=== PATIENT | male | born 1995 | race Caucasian/White ===

== ENCOUNTER 2016-09-04 23:47 | Emergency (ER) | payer OTHER ==
--- NOTE | 2016-09-05 01:54 | ED ORDER SUMMARY ---
..... Patient: KELLY GUZMAN OrderSheet [facility] VisitID: [id number] [address] [place] [address] 21y, M Registration Date/Time: 09/04/2016 ORDER SHEET Weight: 69.3 kg (stated) Allergies: No Known Drug Allergy GENERAL ORDERS: US Scrotum/Testicular Urgent (00:08 09/05/2016 Elkin GIRALDO) (Ack 0:12 AMcQuoid ER Tech1) (1:05 Veronica) UA-Culture if indicated Urgent (00:09 09/05/2016 Elkin GIRALDO) (Ack 0:12 AMcQuoid ER Tech1) (1:26 Reyna R.NAbdulaziz) MEDICATION ORDERS: IV FLUIDS: ORDER SHEET NOTES: [Electronically signed by Bree Cruz R.N. (02:02 09/05/2016)] [Electronically signed by Tate Wyatt MD (10:05 09/07/2016)] [Electronically locked/signed by Bree Cruz R.N. (02:02 09/05/2016)]
--- NOTE | 2016-09-05 01:54 | ED CLINICAL REPORT ---
Clinical Report - Physicians/Mid Levels [facility] [address] [place] [address] 09/04/2016 23:48 Patient: KELLY GUZMAN Time Seen: 00:06. Arrived- By private vehicle. Historian- patient and significant other. CPT: ER phys charges level 4 (#[id number]). HISTORY OF PRESENT ILLNESS Chief Complaint: RIGHT TESTICULAR PAIN. Is still present. The problem is described as moderate. No penile discharge, discomfort with urination, urinary frequency or genital lesion. He has had moderate testicular pain, involving the right testicle with swelling. Sexual history is noncontributory. Similar symptoms previously: None. Recent medical care: Not recently seen/assessed. REVIEW OF SYSTEMS No fever, flank pain, hematuria, abdominal pain or vomiting. No diarrhea, black stools, sore throat, chest pain or difficulty breathing. No cough, joint pain, skin rash or back pain. All systems otherwise negative, except as recorded above. PAST HISTORY See nurses notes. ( Hydrocele). Medications: Whey Protein Oral. Multivitamins Oral. Allergies: No Known Drug Allergy. SOCIAL HISTORY Never smoker. No alcohol use or drug use. ADDITIONAL NOTES The nursing notes have been reviewed. PHYSICAL EXAM Vital Signs: 09/04/2016 23:53 BP: 134/73. HR: 70. RR: 16. O2 saturation: 99%. Temp: 97.9 F. Carrillo-Perkins pain scale: 4/10. Appearance: Alert. Patient in mild distress. ENT: Normal external inspection. Pharynx normal. CVS: Heart sounds normal. Respiratory: No respiratory distress. Breath sounds normal. Abdomen: Soft and nontender. Bowel sounds normal. Back: Normal external inspection. No CVA tenderness. : Moderate tenderness of the right testicle and epididymis. Skin: Skin warm. Normal skin color. No rash. Extremities: Extremities exhibit normal ROM. Neuro: Oriented X 3. No motor deficit. No sensory deficit. LABS, X-RAYS, AND EKG Testicular Scan: There is moderately increased flow to the right testicle. Findings are consistent with epididymitis. . Flow not decreased. Laboratory Tests: UA-Culture if indicated: (ARISTIDES: 09/05/2016 01:24) ( MsgRcvd 09/05/2016 01:43) Final results Test Result Flag Units (Reference) URINE COLOR YELLOW URINE APPEARANCE SLIGHTLY HAZY URINE GLUCOSE NEGATIVE (NEGATIVE) URINE BILIRUBIN NEGATIVE (NEGATIVE) URINE KETONE NEGATIVE (NEGATIVE) URINE SPECIFIC GRAVITY 1.015 (1.010-1.030) URINE PH 8.0 (5.0-8.0) URINE PROTEIN 1+ (NEGATIVE) URINE UROBILINOGEN 0.2 EU/dL (0.2-1.0) URINE NITRITE NEGATIVE (NEGATIVE) URINE BLOOD NEGATIVE (NEGATIVE) URINE LEUK ESTERASE NEGATIVE (NEGATIVE) URINE RBC RARE rbc/hpf (0-1) URINE WBC 0-1 wbc/hpf (0-1) URINE EPITHELIAL CELLS NONE SEEN EPI/hpf (0-5) URINE BACTERIA NONE SEEN (NONE SEEN) URINE COMMENT CULT NOT INDICATED 3+ AMORPHOUSURINE CULTURES ARE SET-UP BASED ON THE FOLLOWING CRITERIA:POSITIVE NITRITEPOSITIVE LEUKOCYTE ESTERASEGREATER THAN 10 WHITE BLOOD CELLSMODERATE (2+) OR GREATER BACTERIA . PROGRESS AND PROCEDURES Patient/family counseled. Disposition: Discharged. Condition: stable. CLINICAL IMPRESSION Right epididymitis INSTRUCTIONS No sexual contact until symptoms resolve. Warnings: Further evaluation is necessary. GENERAL WARNINGS: Return or contact your physician immediately if your condition worsens or changes unexpectedly, if not improving as expected, or if other problems arise. Your Current Medications: CONTINUE TAKING THE FOLLOWING MEDICATIONS: Multivitamins Oral. Whey Protein Oral. Prescription Medications: Hydrocodone/APAP 5mg/325mg: take 1 to 2 orally every 6 hours as needed for pain. Dispense fifteen (15). No refills. Doxycycline 100 mg: Take 1 capsule orally every 12 hours for 10 days. No refill. Follow-up: Return to the emergency department if not well. Follow up with your doctor in one week. Call for an appointment. Understanding of the discharge instructions verbalized by patient. Discharge instructions reviewed with and understanding was verbalized by shale processing technician. (Electronically signed by Tate Wyatt MD 09/07/2016 10:05)
--- NOTE | 2016-09-05 01:54 | ED CLINICAL REPORT ---
Clinical Report - Physicians/Mid Levels [facility] [address] [place] [address] 09/04/2016 23:48 Patient: KELLY GUZMAN Time Seen: 00:06. Arrived- By private vehicle. Historian- patient and significant other. CPT: ER phys charges level 4 (#[id number]). HISTORY OF PRESENT ILLNESS Chief Complaint: RIGHT TESTICULAR PAIN. Is still present. The problem is described as moderate. No penile discharge, discomfort with urination, urinary frequency or genital lesion. He has had moderate testicular pain, involving the right testicle with swelling. Sexual history is noncontributory. Similar symptoms previously: None. Recent medical care: Not recently seen/assessed. REVIEW OF SYSTEMS No fever, flank pain, hematuria, abdominal pain or vomiting. No diarrhea, black stools, sore throat, chest pain or difficulty breathing. No cough, joint pain, skin rash or back pain. All systems otherwise negative, except as recorded above. PAST HISTORY See nurses notes. ( Hydrocele). Medications: Whey Protein Oral. Multivitamins Oral. Allergies: No Known Drug Allergy. SOCIAL HISTORY Never smoker. No alcohol use or drug use. ADDITIONAL NOTES The nursing notes have been reviewed. PHYSICAL EXAM Vital Signs: 09/04/2016 23:53 BP: 134/73. HR: 70. RR: 16. O2 saturation: 99%. Temp: 97.9 F. Carrillo-Perkins pain scale: 4/10. Appearance: Alert. Patient in mild distress. ENT: Normal external inspection. Pharynx normal. CVS: Heart sounds normal. Respiratory: No respiratory distress. Breath sounds normal. Abdomen: Soft and nontender. Bowel sounds normal. Back: Normal external inspection. No CVA tenderness. : Moderate tenderness of the right testicle and epididymis. Skin: Skin warm. Normal skin color. No rash. Extremities: Extremities exhibit normal ROM. Neuro: Oriented X 3. No motor deficit. No sensory deficit. LABS, X-RAYS, AND EKG Testicular Scan: There is moderately increased flow to the right testicle. Findings are consistent with epididymitis. . Flow not decreased. Laboratory Tests: UA-Culture if indicated: (ARISTIDES: 09/05/2016 01:24) ( MsgRcvd 09/05/2016 01:43) Final results Test Result Flag Units (Reference) URINE COLOR YELLOW URINE APPEARANCE SLIGHTLY HAZY URINE GLUCOSE NEGATIVE (NEGATIVE) URINE BILIRUBIN NEGATIVE (NEGATIVE) URINE KETONE NEGATIVE (NEGATIVE) URINE SPECIFIC GRAVITY 1.015 (1.010-1.030) URINE PH 8.0 (5.0-8.0) URINE PROTEIN 1+ (NEGATIVE) URINE UROBILINOGEN 0.2 EU/dL (0.2-1.0) URINE NITRITE NEGATIVE (NEGATIVE) URINE BLOOD NEGATIVE (NEGATIVE) URINE LEUK ESTERASE NEGATIVE (NEGATIVE) URINE RBC RARE rbc/hpf (0-1) URINE WBC 0-1 wbc/hpf (0-1) URINE EPITHELIAL CELLS NONE SEEN EPI/hpf (0-5) URINE BACTERIA NONE SEEN (NONE SEEN) URINE COMMENT CULT NOT INDICATED 3+ AMORPHOUSURINE CULTURES ARE SET-UP BASED ON THE FOLLOWING CRITERIA:POSITIVE NITRITEPOSITIVE LEUKOCYTE ESTERASEGREATER THAN 10 WHITE BLOOD CELLSMODERATE (2+) OR GREATER BACTERIA . PROGRESS AND PROCEDURES Patient/family counseled. Disposition: Discharged. Condition: stable. CLINICAL IMPRESSION Right epididymitis INSTRUCTIONS No sexual contact until symptoms resolve. Warnings: Further evaluation is necessary. GENERAL WARNINGS: Return or contact your physician immediately if your condition worsens or changes unexpectedly, if not improving as expected, or if other problems arise. Your Current Medications: CONTINUE TAKING THE FOLLOWING MEDICATIONS: Multivitamins Oral. Whey Protein Oral. Prescription Medications: Hydrocodone/APAP 5mg/325mg: take 1 to 2 orally every 6 hours as needed for pain. Dispense fifteen (15). No refills. Doxycycline 100 mg: Take 1 capsule orally every 12 hours for 10 days. No refill. Follow-up: Return to the emergency department if not well. Follow up with your doctor in one week. Call for an appointment. Understanding of the discharge instructions verbalized by patient. Discharge instructions reviewed with and understanding was verbalized by brand marketing intern. (Electronically signed by Tate Wyatt MD 09/07/2016 10:05)
--- NOTE | 2016-09-05 01:54 | ED NURSING NOTES ---
Clinical Report - Nurses [facility] [address] [place] [address] 09/04/2016 23:48 Patient: KELLY GUZMAN TRIAGE Triage time 23:53. Acuity: LEVEL 3. Chief Complaint: TESTICULAR PAIN. Alert. No acute distress. --23:58 Bree Cruz R.N. 23:53 09/04/16. BP: 134/73. HR: 70. RR: 16. O2 saturation: 99% on room air. Temp: 97.9 F (oral). Carrillo-Perkins pain scale: 4/10. --23:58 Bree Cruz R.N. Weight: 69.3 kg stated. Height/Length: 66 inches Per Patient. BMI: 24.7. --23:55 Bree Cruz R.N. Medications Multivitamins Oral. --23:55 Bree Cruz R.N. Whey Protein Oral. --23:55 Bree Cruz R.N. Allergies No Known Drug Allergy. --23:55 Bree Cruz R.N. History Arrived by private vehicle. Historian: patient. Accompanied by friend. Primary physician (None). ( pt urinated and noticed pain & swelling.). This started today. Onset. 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 He has had testicular pain. Treatment MEDICAL STAFFING COORDINATOR: None. PAST MEDICAL HX: Immunizations: up-to-date. SOCIAL HX: Never smoker. No alcohol use or drug use. NUTRITIONAL RISK ASSESSMENT: The nutritional risk assessment revealed no deficiencies. FUNCTIONAL ASSESSMENT: Functional assessment: no impairments noted. --23:58 Bree Cruz R.N. PROBLEMS: Epididymitis. --23:56 Bree Cruz R.N. ADDITIONAL SURGERIES: Hydrocele. --23:56 Bree Cruz R.N. Interventions ID band on patient. To treatment room. --23:58 Bree Cruz R.N. PHYSICAL ASSESSMENT Ambulatory to room. Patient gowned. GENERAL / NEURO / PSYCH: Oriented X 4. Appears in pain. HEENT: Mucous membranes are pink. RESPIRATORY: Respirations not labored. CVS: Capillary refill less than 2 seconds. SKIN: Skin is warm and dry. --23:58 Bree Cruz R.N. GI / : Right-sided scrotal swelling with tenderness (per pt report). --00:01 Bree Cruz R.N. NURSING PROGRESS NOTES Head of bed elevated. Two patient identifiers checked. Call light placed in reach. Side rails up x 1. Bed placed in lowest position. Brakes of bed on. --23:58 Bree Cruz R.N. Patient ready for evaluation- chart flagged. --23:58 Bree Cruz R.N. ( urine sample requested, pt states unable to urinate at this time.). --00:00 Bree Cruz R.N. ( US exam in progress.). --00:52 Bree Cruz R.N. 01:17- pt reminded of need for urine sample. Pt still reports unable to go at this time. Pt encouraged to try. --01:18 Bree Cruz R.N. 01:26 09/05/16. BP: 124/70. HR: 54. RR: 15. O2 saturation: 100% on room air. Pain level now: 0/10. --01:27 Bree Cruz R.N. DISPOSITION / DISCHARGE 01:26 09/05/16. BP: 124/70. HR: 54. RR: 15. O2 saturation: 100% on room air. Pain level now: 0/10. --02:01 Bree Cruz R.N. Condition at departure: improved and stable. Reviewed medication(s) side effects, precautions, dosing and course information. Prescription(s) given to the patient. Patient verbalized understanding. Written instructions provided in Tongan. The patient was discharged home and accompanied by supervisor airplane flight attendant. He left the Emergency Department ambulatory and via private vehicle. Educational Program Director driving. --02:02 Bree Cruz R.N. Locked/Released at 09/05/2016 2:02 by Bree Cruz R.N.
--- NOTE | 2016-09-05 01:54 | ED NURSING NOTES ---
Clinical Report - Nurses [facility] [address] [place] [address] 09/04/2016 23:48 Patient: KELLY GUZMAN TRIAGE Triage time 23:53. Acuity: LEVEL 3. Chief Complaint: TESTICULAR PAIN. Alert. No acute distress. --23:58 Bree Cruz R.N. 23:53 09/04/16. BP: 134/73. HR: 70. RR: 16. O2 saturation: 99% on room air. Temp: 97.9 F (oral). Carrillo-Perkins pain scale: 4/10. --23:58 Bree Cruz R.N. Weight: 69.3 kg stated. Height/Length: 66 inches Per Patient. BMI: 24.7. --23:55 Bree Cruz R.N. Medications Multivitamins Oral. --23:55 Bree Cruz R.N. Whey Protein Oral. --23:55 Bree Cruz R.N. Allergies No Known Drug Allergy. --23:55 Bree Cruz R.N. History Arrived by private vehicle. Historian: patient. Accompanied by friend. Primary physician (None). ( pt urinated and noticed pain & swelling.). This started today. Onset. 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 He has had testicular pain. Treatment BLOCK CLEANER: None. PAST MEDICAL HX: Immunizations: up-to-date. SOCIAL HX: Never smoker. No alcohol use or drug use. NUTRITIONAL RISK ASSESSMENT: The nutritional risk assessment revealed no deficiencies. FUNCTIONAL ASSESSMENT: Functional assessment: no impairments noted. --23:58 Bree Cruz R.N. PROBLEMS: Epididymitis. --23:56 Bree Cruz R.N. ADDITIONAL SURGERIES: Hydrocele. --23:56 Bree Cruz R.N. Interventions ID band on patient. To treatment room. --23:58 Bree Cruz R.N. PHYSICAL ASSESSMENT Ambulatory to room. Patient gowned. GENERAL / NEURO / PSYCH: Oriented X 4. Appears in pain. HEENT: Mucous membranes are pink. RESPIRATORY: Respirations not labored. CVS: Capillary refill less than 2 seconds. SKIN: Skin is warm and dry. --23:58 Bree Cruz R.N. GI / : Right-sided scrotal swelling with tenderness (per pt report). --00:01 Bree Cruz R.N. NURSING PROGRESS NOTES Head of bed elevated. Two patient identifiers checked. Call light placed in reach. Side rails up x 1. Bed placed in lowest position. Brakes of bed on. --23:58 Bree Cruz R.N. Patient ready for evaluation- chart flagged. --23:58 Bree Cruz R.N. ( urine sample requested, pt states unable to urinate at this time.). --00:00 Bree Cruz R.N. ( US exam in progress.). --00:52 Bree Cruz R.N. 01:17- pt reminded of need for urine sample. Pt still reports unable to go at this time. Pt encouraged to try. --01:18 Bree Cruz R.N. 01:26 09/05/16. BP: 124/70. HR: 54. RR: 15. O2 saturation: 100% on room air. Pain level now: 0/10. --01:27 Bree Cruz R.N. DISPOSITION / DISCHARGE 01:26 09/05/16. BP: 124/70. HR: 54. RR: 15. O2 saturation: 100% on room air. Pain level now: 0/10. --02:01 Bree Cruz R.N. Condition at departure: improved and stable. Reviewed medication(s) side effects, precautions, dosing and course information. Prescription(s) given to the patient. Patient verbalized understanding. Written instructions provided in Belgian. The patient was discharged home and accompanied by microstrategy bi developer. He left the Emergency Department ambulatory and via private vehicle. Cnc Lathe Machinist driving. --02:02 Bree Cruz R.N. Locked/Released at 09/05/2016 2:02 by Bree Cruz R.N.
--- NOTE | 2016-09-05 01:54 | ED ORDER SUMMARY ---
..... Patient: KELLY GUZMAN OrderSheet [facility] VisitID: [id number] [address] [place] [address] 21y, M Registration Date/Time: 09/04/2016 ORDER SHEET Weight: 69.3 kg (stated) Allergies: No Known Drug Allergy GENERAL ORDERS: US Scrotum/Testicular Urgent (00:08 09/05/2016 Elkin GIRALDO) (Ack 0:12 AMcQuoid ER Tech1) (1:05 Veronica) UA-Culture if indicated Urgent (00:09 09/05/2016 Elkin GIRALDO) (Ack 0:12 AMcQuoid ER Tech1) (1:26 Reyna R.NAbdulaziz) MEDICATION ORDERS: IV FLUIDS: ORDER SHEET NOTES: [Electronically signed by Bree Cruz R.N. (02:02 09/05/2016)] [Electronically signed by Tate Wyatt MD (10:05 09/07/2016)] [Electronically locked/signed by Bree Cruz R.N. (02:02 09/05/2016)]
--- NOTE | 2016-09-05 05:58 | DIAGNOSTIC IMAGING REPORT ---
PROCEDURE: US SCROTUM/TESTICLE INDICATION: Right scrotal pain x 3 hours. TECHNIQUE: Blue scale and color Doppler sonographic images through the scrotum were obtained. COMPARISON: None. FINDINGS: RIGHT TESTICLE: Testicle measures 3.2 x 3.5 x 2.5 cm with normal vascularity and echo structure. Small hydrocele. There is slightly increased vascularity of the epididymis. LEFT TESTICLE: Testicle measures 3.6 x 2.4 x 3.1 cm with normal vascularity and echo structure. Normal epididymis. Small hydrocele. IMPRESSION: 1. Right epididymis slight hyperemia suggestive of epididymitis. 2. Small bilateral hydroceles 3. Normal testicles
--- NOTE | 2016-09-07 10:05 | ED MAR SUMMARY ---
..... Medication Administration Record [facility] [address], [place] [id number] Patient: KELLY GUZMAN Visit ID: [id number] 21y, M Weight: 69.3 kg Height/Length: 66 in BMI: 24.7 ALLERGIES: No Known Drug Allergy
--- NOTE | 2016-09-07 10:05 | ED DISCHARGE INSTRUCTIONS ---
Patient: KELLY GUZMAN General Instructions [facility] VisitID: [id number] [place] [address] 21y, M Registration Date/Time: 09/04/2016 Right epididymitis INSTRUCTIONS No sexual contact until symptoms resolve. Warnings: Further evaluation is necessary. GENERAL WARNINGS: Return or contact your physician immediately if your condition worsens or changes unexpectedly, if not improving as expected, or if other problems arise. Your Current Medications: CONTINUE TAKING THE FOLLOWING MEDICATIONS: Multivitamins Oral. Whey Protein Oral. Prescription Medications: Hydrocodone/APAP 5mg/325mg: take 1 to 2 orally every 6 hours as needed for pain. Dispense fifteen (15). No refills. Doxycycline 100 mg: Take 1 capsule orally every 12 hours for 10 days. No refill. Follow-up: Return to the emergency department if not well. Follow up with your doctor in one week. Call for an appointment. Understanding of the discharge instructions verbalized by patient. Discharge instructions reviewed with and understanding was verbalized by oil field technician. ADDITIONAL INFORMATION Epididymitis The pain and swelling in your scrotum are due to an inflammation of the epididymis. This is a small sac next to the testicle that stores sperm. It is usually due to an infection. In sexually active men, it is often due to a sexually transmitted disease (STD) such as Chlamydia or Gonorrhea. In boys and older men who are not sexually active, it is due to bacteria from the bladder or prostate gland (not an STD infection). Symptoms may begin with lower abdominal or low back pain and spreads down into the scrotum. Usually only one side is affected. The testicle and scrotum swell and become very painful. There may be fever and burning when passing urine. Sometimes there is a discharge from the penis. Treatment is with antibiotics, anti-inflammatory and pain medicines. There should be improvement over the first few days of treatment, but it will take several weeks for all the swelling and discomfort to go away. If an STD is suspected as a cause, sexual partners must also be treated. Home Care: 1) Support the scrotum. When lying down, place a rolled towel under the scrotum. When walking, use an athletic supporter or two pairs of Jockey-style underwear. 2) To relieve pain, apply ice packs to the inflamed area (ice cubes in a plastic bag wrapped in a towel). 3) You may use acetaminophen (Tylenol) or ibuprofen (Motrin, Advil) to control pain, unless another medicine was prescribed. [ NOTE : If you have chronic liver or kidney disease or ever had a stomach ulcer or GI bleeding, talk with your doctor before using these medicines.] 4) Rest in bed until the fever, pain and swelling decrease. It may take several weeks for all of the swelling to go away. Avoid coffee, tea, carbonated beverages and alcohol, which could worsen your symptoms. 5) Avoid constipation (which causes straining and therefore increased pain) by eating natural laxatives such as prunes, fresh fruits and whole-grain cereals. If necessary, use a mild xuwp-fvp-kamtdic laxative (Milk of Magnesia) for constipation. Mineral oil can be used to keep the stools soft. 6) Do not have sex until you have finished all treatment and all symptoms have cleared. 7) Take all medicine as directed. Do not miss any doses and do not stop early even if you feel better. Follow Up with your doctor, a urologist, or as advised by our staff to be sure you are responding properly to treatment. If a culture was taken, you may call for the result in 2-3 days. A culture test can ensure that you are on the correct antibiotic. Get Prompt Medical Attention if any of the following occur: -- Fever over 100.4 F (38.0 C) after three days of treatment -- Increasing pain or swelling of the testicle after starting treatment -- Increasing pressure or pain in your bladder -- Unable to pass urine for eight hours You have been given the following additional information: Epididymitis (Electronically signed by Tate Wyatt MD 09/07/2016 10:05)
--- NOTE | 2016-09-07 10:05 | ED MAR SUMMARY ---
..... Medication Administration Record [facility] [address], [place] [id number] Patient: KELLY GUZMAN Visit ID: [id number] 21y, M Weight: 69.3 kg Height/Length: 66 in BMI: 24.7 ALLERGIES: No Known Drug Allergy
--- NOTE | 2016-09-07 10:05 | ED MED RECONCILIATION SUMMARY ---
Patient: KELLY GUZMAN Medication Reconciliation Report [facility] VisitID: [id number] [address] [place] [address] 21y, M Registration Date/Time: 09/04/2016 Weight: 69.3 kg Height/Length: 66 in. BMI: 24.7 ALLERGIES: No Known Drug Allergy The patient's Home Medications are listed below: CONTINUE TAKING THE FOLLOWING MEDICATIONS: Multivitamins Oral Whey Protein Oral The source(s) of the original Home Medication information: Not obtained. The following Medications were given to the patient in the Emergency Department: None. The following Medications were prescribed to the patient: Hydrocodone/APAP 5mg/325mg: take 1 to 2 orally every 6 hours as needed for pain. Dispense fifteen (15). No refills. -- Tate Wyatt MD Doxycycline 100 mg: Take 1 capsule orally every 12 hours for 10 days. No refill. -- Tate Wyatt MD
--- NOTE | 2016-09-07 10:05 | ED MED RECONCILIATION SUMMARY ---
Patient: KELLY GUZMAN Medication Reconciliation Report [facility] VisitID: [id number] [address] [place] [address] 21y, M Registration Date/Time: 09/04/2016 Weight: 69.3 kg Height/Length: 66 in. BMI: 24.7 ALLERGIES: No Known Drug Allergy The patient's Home Medications are listed below: CONTINUE TAKING THE FOLLOWING MEDICATIONS: Multivitamins Oral Whey Protein Oral The source(s) of the original Home Medication information: Not obtained. The following Medications were given to the patient in the Emergency Department: None. The following Medications were prescribed to the patient: Hydrocodone/APAP 5mg/325mg: take 1 to 2 orally every 6 hours as needed for pain. Dispense fifteen (15). No refills. -- Tate Wyatt MD Doxycycline 100 mg: Take 1 capsule orally every 12 hours for 10 days. No refill. -- Tate Wyatt MD
--- NOTE | 2016-09-07 10:05 | ED DISCHARGE INSTRUCTIONS ---
Patient: KELLY GUZMAN General Instructions [facility] VisitID: [id number] [place] [address] 21y, M Registration Date/Time: 09/04/2016 Right epididymitis INSTRUCTIONS No sexual contact until symptoms resolve. Warnings: Further evaluation is necessary. GENERAL WARNINGS: Return or contact your physician immediately if your condition worsens or changes unexpectedly, if not improving as expected, or if other problems arise. Your Current Medications: CONTINUE TAKING THE FOLLOWING MEDICATIONS: Multivitamins Oral. Whey Protein Oral. Prescription Medications: Hydrocodone/APAP 5mg/325mg: take 1 to 2 orally every 6 hours as needed for pain. Dispense fifteen (15). No refills. Doxycycline 100 mg: Take 1 capsule orally every 12 hours for 10 days. No refill. Follow-up: Return to the emergency department if not well. Follow up with your doctor in one week. Call for an appointment. Understanding of the discharge instructions verbalized by patient. Discharge instructions reviewed with and understanding was verbalized by velocity shooter. ADDITIONAL INFORMATION Epididymitis The pain and swelling in your scrotum are due to an inflammation of the epididymis. This is a small sac next to the testicle that stores sperm. It is usually due to an infection. In sexually active men, it is often due to a sexually transmitted disease (STD) such as Chlamydia or Gonorrhea. In boys and older men who are not sexually active, it is due to bacteria from the bladder or prostate gland (not an STD infection). Symptoms may begin with lower abdominal or low back pain and spreads down into the scrotum. Usually only one side is affected. The testicle and scrotum swell and become very painful. There may be fever and burning when passing urine. Sometimes there is a discharge from the penis. Treatment is with antibiotics, anti-inflammatory and pain medicines. There should be improvement over the first few days of treatment, but it will take several weeks for all the swelling and discomfort to go away. If an STD is suspected as a cause, sexual partners must also be treated. Home Care: 1) Support the scrotum. When lying down, place a rolled towel under the scrotum. When walking, use an athletic supporter or two pairs of Jockey-style underwear. 2) To relieve pain, apply ice packs to the inflamed area (ice cubes in a plastic bag wrapped in a towel). 3) You may use acetaminophen (Tylenol) or ibuprofen (Motrin, Advil) to control pain, unless another medicine was prescribed. [ NOTE : If you have chronic liver or kidney disease or ever had a stomach ulcer or GI bleeding, talk with your doctor before using these medicines.] 4) Rest in bed until the fever, pain and swelling decrease. It may take several weeks for all of the swelling to go away. Avoid coffee, tea, carbonated beverages and alcohol, which could worsen your symptoms. 5) Avoid constipation (which causes straining and therefore increased pain) by eating natural laxatives such as prunes, fresh fruits and whole-grain cereals. If necessary, use a mild wxfr-tib-lfhzkag laxative (Milk of Magnesia) for constipation. Mineral oil can be used to keep the stools soft. 6) Do not have sex until you have finished all treatment and all symptoms have cleared. 7) Take all medicine as directed. Do not miss any doses and do not stop early even if you feel better. Follow Up with your doctor, a urologist, or as advised by our staff to be sure you are responding properly to treatment. If a culture was taken, you may call for the result in 2-3 days. A culture test can ensure that you are on the correct antibiotic. Get Prompt Medical Attention if any of the following occur: -- Fever over 100.4 F (38.0 C) after three days of treatment -- Increasing pain or swelling of the testicle after starting treatment -- Increasing pressure or pain in your bladder -- Unable to pass urine for eight hours You have been given the following additional information: Epididymitis (Electronically signed by Tate Wyatt MD 09/07/2016 10:05)
== END 2016-09-05 02:00 | disposition home or self-care (01) ==
LOC: ED SRH 23:47
DX: N45.1 Epididymitis (principal)
CPT/HCPCS: 90004